=== PATIENT | female | born 1985 | race Caucasian/White ===

== ENCOUNTER 2024-06-04 16:21 | Outpatient (CLI) | payer BC, SELFPAY ==
[2024-06-04] VITALS (7 sets, daily range): BP systolic 120–138; BP diastolic 85–99; PULSE 90–116; BMI 41.8
[2024-06-04 16:56] LABS: Basophils Percent Auto 0.4 % (0.2-1.2); Eosinophils Absolute Auto 0.2 K/mm3 (0-0.3); Eosinophils Percent Auto 1.6 % (0-4.4); Hematocrit 35.4 % (37.0-47.0); Hemoglobin 11.6 g/dL (12.0-15.0); Immature Granulocyte Absolute 0.05 K/mm3 (0.00-0.031); Immature Granulocyte Percent A 0.5 % (0-0.5); Lymphocytes Absolute Auto 2.14 K/mm3 (0.9-3.2); Mean Corpuscular HGB Conc 32.8 g/dl (32-36); Mean Corpuscular Hemoglobin 27.4 pg (26-34); Mean Corpuscular Volume 83.7 fl (80-100); Mean Platelet Volume 10.9 fl (7.4-10.4); Monocytes Absolute Auto 0.5 K/mm3 (0.1-0.6); Monocytes Percent Auto 5.2 % (2.6-8.5); Neutrophils Absolute Auto 7.3 K/mm3 (1.3-6.7); Neutrophils Percent Auto 71.3 % (45.5-73.1); Platelet Count Result 254 k/mm3 (150-375); Red Blood Count 4.23 M/mm3 (4.2-5.4); Red Cell Distribution Width 14.2 % (11.5-14.5); White Blood Count 10.2 K/mm3 (4.5-10.0)
[2024-06-04 16:59] LABS: Add Urine Microscopic? YES; Appearance Urine Clear (Clear); Bacteria Urine Rare /hpf; Bilirubin Urine Negative (Negative); Blood Urine 1+ (Negative); Color Urine Yellow (Yellow); Glucose Urine UA Negative (Negative); Ketones Urine 2+ mg/dL (Negative); Leukocyte Esterase Ur 2+ LEU/UL (Negative); Nitrate Urine Negative (Negative); Non Pathogenic Casts 0-2; Protein Urine Negative (Negative); RBC Urine 0-2 /hpf (0-2); Squamous Epithelial Cell Urine Few /hpf (Few); Urobilinogen Urine 0.2 mg/dL (<2.0); pH Urine 5.5 (5.0-9.0)
[2024-06-04 17:04] LABS: Creatinine Urine 50.8 mg/dL; Total Protein Urine Random 10 mg/dL
[2024-06-04 17:08] LABS: Alanine Aminotransferase 11 U/L (6-35); Albumin Level 3.7 g/dL (3.5-5.1); Alkaline Phosphatase 145 U/L (38-126); Anion Gap 12 mmol/L (4-12); Aspartate Amino Transferase 17 U/L (14-36); Bilirubin,Total 0.5 mg/dL (0.2-1.3); Blood Urea Nitrogen 7 mg/dL (7-17); Calcium 9.1 mg/dL (8.4-10.2); Carbon Dioxide 17 mmol/L (22-30); Chloride 103 mmol/L (98-107); Estimated Glomerular Filt Rate > 60; Glucose 82 mg/dL (65-110); Potassium 3.6 mmol/L (3.4-5.0); Sodium 132 mmol/L (137-145); Uric Acid 4.4 mg/dL (2.5-7.5)
--- NOTE | 2024-06-04 17:47 | PC.NURSE ---
see obix notes
== END 2024-06-04 19:15 | disposition home or self-care (01) ==
LOC: ANHOBOP 16:35 → ANHLDR 16:35
PROVIDERS: Advanced Practice Midwife; PCP Registered Nurse; Visit Provider Obstetrics & Gynecology Gynecology
DX: O13.9 Gestational [pregnancy-induced] hypertension without significant proteinuria, unspecified trimester (principal); Z3A.00 Weeks of gestation of pregnancy not specified
CPT/HCPCS: 36415; 80053; 81001; 82570; 84156; 84550; 85025; 87086; 99199

== ENCOUNTER 2024-06-13 05:05 | Outpatient (CLI) | payer BC, SELFPAY ==
[2024-06-13] VITALS (19 sets, daily range): BP systolic 116–119; BP diastolic 73–79; PULSE 71–95; O2SAT 97–99; BMI 42.2
--- NOTE | 2024-06-13 05:36 | OBADM ---
This patient, Soheila Orourke, admitted to the OB room OB Post 117 for observation. Patient/family oriented to hospital policies and general routines including ID bracelet, bed and alarms, visiting hours, pain management, procedures, bathroom and other care routines, personal items, smoking policy, room service/diet, and visiting hours. Patient/Family are encouraged to report perceived risks to care and to ask questions if they do not understand what they are told or what they should do.
--- NOTE | 2024-06-13 05:40 | PC.NURSE ---
pt presents to unit with complaints of headache since last night rating 7/10. Pt reports elevated blood pressures at home. Pt denies LOF, Vaginal bleeding, contractions, or visual disturbances. Pt states that she has experienced flutters in RUQ throughout this but states that they have not happened tonight. Pt states that she took 2 childrens tylenol at home approx @ 0345.
[2024-06-13 05:42] LABS: Basophils Percent Auto 0.5 % (0.2-1.2); Eosinophils Absolute Auto 0.2 K/mm3 (0-0.3); Eosinophils Percent Auto 2.6 % (0-4.4); Hematocrit 34.8 % (37.0-47.0); Hemoglobin 11.3 g/dL (12.0-15.0); Immature Granulocyte Absolute 0.04 K/mm3 (0.00-0.031); Immature Granulocyte Percent A 0.5 % (0-0.5); Lymphocytes Absolute Auto 2.07 K/mm3 (0.9-3.2); Lymphocytes Percent Auto 25.6 % (18.3-44.2); Mean Corpuscular HGB Conc 32.5 g/dl (32-36); Mean Corpuscular Hemoglobin 27.6 pg (26-34); Mean Corpuscular Volume 84.9 fl (80-100); Mean Platelet Volume 10.8 fl (7.4-10.4); Monocytes Absolute Auto 0.6 K/mm3 (0.1-0.6); Monocytes Percent Auto 7.4 % (2.6-8.5); Neutrophils Absolute Auto 5.1 K/mm3 (1.3-6.7); Neutrophils Percent Auto 63.4 % (45.5-73.1); Platelet Count Result 233 k/mm3 (150-375); Red Cell Distribution Width 14.3 % (11.5-14.5); White Blood Count 8.1 K/mm3 (4.5-10.0)
[2024-06-13 05:47] LABS: Total Protein Urine Random 15 mg/dL
[2024-06-13 05:49] LABS: Creatinine Urine 17.4 mg/dL; Ur Ttl Prot Creatinine Ratio 0.86 mg/mg (0-0.20)
[2024-06-13 05:50] LABS: Alanine Aminotransferase 11 U/L (6-35); Albumin Level 3.4 g/dL (3.5-5.1); Alkaline Phosphatase 161 U/L (38-126); Anion Gap 10 mmol/L (4-12); Aspartate Amino Transferase 16 U/L (14-36); Bilirubin,Total 0.3 mg/dL (0.2-1.3); Blood Urea Nitrogen 7 mg/dL (7-17); Calcium 8.7 mg/dL (8.4-10.2); Carbon Dioxide 18 mmol/L (22-30); Chloride 105 mmol/L (98-107); Estimated CRCL calculation 175 ml/min; Estimated Glomerular Filt Rate > 60; Glucose 89 mg/dL (65-110); Potassium 3.5 mmol/L (3.4-5.0); Sodium 133 mmol/L (137-145); Uric Acid 4.5 mg/dL (2.5-7.5)
[2024-06-13 05:53] LABS: Add Urine Microscopic? YES
[2024-06-13 05:54] LABS: Appearance Urine Clear (Clear); Color Urine Yellow (Yellow)
[2024-06-13 05:56] LABS: Bilirubin Urine Negative (Negative); Blood Urine Trace (Negative); Glucose Urine UA Negative (Negative); Ketones Urine Negative (Negative); Leukocyte Esterase Ur 1+ LEU/UL (Negative); Nitrate Urine Negative (Negative); Protein Urine Negative (Negative); Specific Grav Ur <= 1.005 (1.001-1.035); Urobilinogen Urine 0.2 mg/dL (<2.0)
[2024-06-13 05:57] LABS: Bacteria Urine None Seen /hpf; Need Manual Microscopic Reviewed; Non Pathogenic Casts 0-2; RBC Urine 0-2 /hpf (0-2); Squamous Epithelial Cell Urine Occasional /hpf (Few)
--- NOTE | 2024-06-13 06:34 | PC.NURSE ---
Antoinette Colon notified of adm c/o of headache, BP's at home and BP's here, and lab results. Orders received.
[2024-06-13] MEDS: ACETAMINOPHEN/BUTALBITAL/CAFFEINE 325-50-40 MG TABLET (FIORICET) 1 TAB PO (06:46)
--- NOTE | 2024-06-13 07:42 | PC.NURSE ---
Patient states that her headache is now at a reasonable level and that she is feeling much better. Patient is comfortable going home.
--- NOTE | 2024-06-13 07:45 | PC.NURSE ---
Antoinette Colon notified that patients headache is better and that patient is comfortable going home. Will consult with Dr Baez and call me back with further orders.
--- NOTE | 2024-06-13 08:04 | PC.NURSE ---
Addendum entered by Prema Rodriguez RN 06/13/24 08:04: [id number] Original Note: Antoinette Colon called back, OK to go home per Dr Baez. Patient to follow-up on friday in the office.
== END 2024-06-13 07:55 | disposition home or self-care (01) ==
LOC: ANHOBOP 05:14 → ANHOBPP 05:18
PROVIDERS: Advanced Practice Midwife; PCP Registered Nurse; Visit Provider Obstetrics & Gynecology Gynecology
DX: O13.9 Gestational [pregnancy-induced] hypertension without significant proteinuria, unspecified trimester (principal); Z3A.00 Weeks of gestation of pregnancy not specified
CPT/HCPCS: 36415; 59025; 80053; 81001; 82570; 84156; 84550; 85025; 87086; 99199; A9270

== ENCOUNTER 2024-06-15 16:20 | Inpatient (IN) | payer BC, SELFPAY ==
[2024-06-15] VITALS (64 sets, daily range): BP systolic 72–158; BP diastolic 38–93; PULSE 50–131; TEMP 36.8; O2SAT 95–100; BMI 42.2
--- NOTE | 2024-06-15 16:20 | LDADM ---
This patient, Soheila Orourke, was admitted to Labor/Delivery/Recovery 104 on 06/15/24 at 16:20. Plans for labor, pain management and were discussed with patient. Patient/family oriented to hospital policies and general routines including ID bracelet, bed and alarms, visiting hours, pain management, procedures, bathroom and other care routines, personal items, smoking policy, room service/diet and guest tray routines, security routines, and visiting hours. Patient/Family are encouraged to report perceived risks to care and to ask questions if they do not understand what they are told or what they should do. See OBIX for further documentation.
[2024-06-15 17:50] LABS: Basophils Absolute Auto 0.1 K/mm3 (0.0-0.1); Basophils Percent Auto 0.5 % (0.2-1.2); Eosinophils Absolute Auto 0.2 K/mm3 (0-0.3); Eosinophils Percent Auto 1.8 % (0-4.4); Immature Granulocyte Absolute 0.05 K/mm3 (0.00-0.031); Immature Granulocyte Percent A 0.5 % (0-0.5); Lymphocytes Absolute Auto 1.97 K/mm3 (0.9-3.2); Lymphocytes Percent Auto 19.6 % (18.3-44.2); Mean Corpuscular HGB Conc 33.3 g/dl (32-36); Mean Corpuscular Hemoglobin 27.8 pg (26-34); Mean Corpuscular Volume 83.5 fl (80-100); Mean Platelet Volume 11.4 fl (7.4-10.4); Monocytes Absolute Auto 0.6 K/mm3 (0.1-0.6); Monocytes Percent Auto 5.8 % (2.6-8.5); Neutrophils Absolute Auto 7.2 K/mm3 (1.3-6.7); Neutrophils Percent Auto 71.8 % (45.5-73.1); Platelet Count Result 251 k/mm3 (150-375); Red Blood Count 4.31 M/mm3 (4.2-5.4); Red Cell Distribution Width 14.2 % (11.5-14.5); White Blood Count 10.1 K/mm3 (4.5-10.0)
[2024-06-15 18:04] LABS: Alanine Aminotransferase 10 U/L (6-35); Albumin Level 3.8 g/dL (3.5-5.1); Alkaline Phosphatase 176 U/L (38-126); Anion Gap 14 mmol/L (4-12); Aspartate Amino Transferase 17 U/L (14-36); Bilirubin,Total 0.5 mg/dL (0.2-1.3); Blood Urea Nitrogen 9 mg/dL (7-17); Calcium 9.1 mg/dL (8.4-10.2); Carbon Dioxide 17 mmol/L (22-30); Chloride 101 mmol/L (98-107); Estimated Glomerular Filt Rate > 60; Glucose 77 mg/dL (65-110); Potassium 3.8 mmol/L (3.4-5.0); Sodium 132 mmol/L (137-145)
[2024-06-15 18:31] LABS: Rapid Plasma Reagin Non-Reactive (NonReactive)
[2024-06-15 18:45] LABS: HIV 1/2 Ab P24 Ag Result Negative (Negative)
[2024-06-15] MEDS: LACTATED RINGERS 500 ML 999 ML IV CONT (20:43)
--- NOTE | 2024-06-15 21:39 | WPDANESEPP ---
Anes - Eval Pre Procedure Procedure: labor epidural Date/Time: 06/15/24 21:39 Surgeon: philip Preop Diagnosis: pain during labor Pre Op Diagnosis: Induction of Labor Patient Data Age: 39 Gender: F Height: 1.73 m Weight: 126 kg Last Vital Signs Temp 36.8 C 06/15/24 18:00 Pulse 85 06/15/24 21:30 BP 121/85 06/15/24 21:30 Allergies Allergy/AdvReac Type Severity Reaction Status Date / Time Sulfa (Sulfonamide Allergy Rash Verified 06/13/24 05:46 Antibiotics) Home Medications Medication Instructions Recorded Confirmed Type levothyroxine 175 mcg tablet 175 mcg PO DAILY 05/29/24 06/13/24 History prenat.vits,bo,[id number]-[id number] 1 tablet DAILY 05/29/24 06/13/24 History Laboratory Tests 06/15/24 17:13 WBC 10.1 H K/mm3 (4.5-10.0) RBC 4.31 M/mm3 (4.2-5.4) Hgb 12.0 g/dL (12.0-15.0) Hct 36.0 L % (37.0-47.0) MCV 83.5 fl (80-100) MCH 27.8 pg (26-34) MCHC 33.3 g/dl (32-36) RDW 14.2 % (11.5-14.5) Plt Count 251 k/mm3 (150-375) MPV 11.4 H fl (7.4-10.4) Immature Gran % (Auto) 0.5 % (0-0.5) Neut % (Auto) 71.8 % (45.5-73.1) Lymph % (Auto) 19.6 % (18.3-44.2) [place] % (Auto) 5.8 % (2.6-8.5) Eos % (Auto) 1.8 % (0-4.4) Baso % (Auto) 0.5 % (0.2-1.2) Lymph # (Auto) 1.97 K/mm3 (0.9-3.2) [place] # (Auto) 0.6 K/mm3 (0.1-0.6) Eos # (Auto) 0.2 K/mm3 (0-0.3) Baso # (Auto) 0.1 K/mm3 (0.0-0.1) Abs Immat Gran (auto) 0.05 H K/mm3 (0.00-0.031) Absolute Neuts (auto) 7.2 H K/mm3 (1.3-6.7) Absolute Nucleated RBC 0.000 K/mm3 (0.0-0.012) Nucleated RBC % 0.0 % (0.0-0.2) Sodium 132 L mmol/L (137-145) Potassium 3.8 mmol/L (3.4-5.0) Chloride 101 mmol/L (98-107) Carbon Dioxide 17 L mmol/L (22-30) Anion Gap 14 H mmol/L (4-12) BUN 9 mg/dL (7-17) Creatinine 0.50 L mg/dL (0.7-1.0) Estim Creat Clear Calc Not Reportable Estimated GFR > 60 (59 - ) Glucose 77 mg/dL (65-110) Calcium 9.1 mg/dL (8.4-10.2) Total Bilirubin 0.5 mg/dL (0.2-1.3) AST 17 U/L (14-36) ALT 10 U/L (6-35) Alkaline Phosphatase 176 H U/L (38-126) Total Protein 7.0 g/dL (6.3-8.2) Albumin 3.8 g/dL (3.5-5.1) RPR Non-reactive (NonReactive) HIV 1&2 Ab/P24 Ag 4thGn Negative (Negative) Blood Type A Positive Antibody Screen Negative Patient hx anesthesia problems: none Family hx anesthesia problems: none Results Review: All pre-operative results and documents have been reviewed as part of the pre-operative evaluation. [facility] Past Medical History Medical History (Updated 06/15/24 @ 21:40 by Aga Miguel CRNA) Hypothyroid IUP (intrauterine ), incidental Morbid obesity Family History Family History (Updated 05/29/24 @ 14:35 by Sharlene Dunn RN) Other Patient denies significant medical history Social History Social History Years smoked: 10 Smoking status: Former smoker Tobacco type: cigarettes Substance use: never Do You Feel Safe in your Home?: Yes Lack of Transportation: No Lack of Food: Never True Current Housing: I Have Housing Concerned About Future Housing: No Difficulty Paying Gas/Electric Bills: No Difficulty Paying for Meds: No Currently Unemployed: No Education: Trade/Vocational Certificate Difficulty w/ Childcare or Family Care: No Spiritual care concerns: No Exam Day of Procedure 06/15/24 21:39
[2024-06-15] MEDS: LACTATED RINGERS 1,000 ML 500 ML IV CONT (22:51)
[2024-06-15] MEDS: ONDANSETRON INJ 4 MG/2 ML VIAL IV PUSH (23:47)
[2024-06-16] VITALS (215 sets, daily range): BP systolic 80–146; BP diastolic 39–97; PULSE 55–141; RESP 12–18; TEMP 36.1–37.8; O2SAT 83–100
[2024-06-16] MEDS: LACTATED RINGERS 1,000 ML 500 ML IV CONT ×2 (02:10→06:25)
[2024-06-16] MEDS: OXYTOCIN 30 UNITS/NS 500 ML 30 UNITS/500 ML BAG IV CONT (03:10)
[2024-06-16] MEDS: diphenhydrAMINE HCl INJ 50 MG/ML VIAL 25 MG IV PUSH (03:49)
--- NOTE | 2024-06-16 07:17 | WPDOBADMIT ---
Obstetrics - Admit Note Admission Note: record reviewed. No pertinent additions to the history and/or any subsequent changes in the physical findings that are not consistent with the expected course of the were found. Additions to the history and/or subsequent changes in the physical findings follow. Preeclampsia diagnosed 06/15/24.
--- NOTE | 2024-06-16 07:18 | PM.OBPNLAB ---
Pain Control Date/time seen: 06/16/24 07:10 Pain control: tolerating well and epidural Pelvic Exam Dilation (cm): 3 Effacement (%): 50 station: -3 Amniotic membrane status: Intact Comments: head well applied to cervix. Contractions Monitor mode: External Contraction pattern: Irregular Contraction phase: Contraction Contraction intensity: Moderate Status status: Category ll Comments: Reassured by moderate variability and accelerations. Assessment and Plan Pitocin rate (mU/min): 2 Assessment: induction ongoing Comments: CNM to bedside. Discussed plan of care and option for amniotomy and IUPC placement. Discussed risks, benefits, and expectations of breaking water. Patient is agreeable. Amniotomy performed and there was a small return of clear amniotic fluid. IUPC inserted easily and clear fluid returned in catheter. Patient tolerated procedure well. Recommend frequent position changes to facilitate optimal positioning. Dr. Opal Michaud updated.
[2024-06-16] MEDS: LORATADINE 10 MG TABLET PO (07:57)
[2024-06-16] MEDS: LEVOTHYROXINE SODIUM 100 MCG, LEVOTHYROXINE SODIUM 75 MCG 175 MCG PO (07:57)
[2024-06-16] MEDS: SODIUM CHLORIDE 0.9% IV 300 ML 600 ML I-UTERINE (09:49)
[2024-06-16] MEDS: DEXTROSE 5%/LACTATED RINGERS 1,000 ML 125 ML IV CONT (10:24)
--- NOTE | 2024-06-16 14:34 | PM.OBPRVD ---
OB - Vaginal Delivery Note Procedure Delivery date: 06/16/24 Events: Preeclampsia w/o severe features Induction method: Per Pitocin Protocol Delivery augmentation: Rupture of Membranes Delivery monitor: External FHT and Internal Uterine Route of delivery: Episiotomy description: None Laceration Description: None Specimen: Yes Quantitative Blood Loss (ml): 225 Anesthesia type: Epidural Disposition: Floor Complications: No immediate complications Narrative: Soheila arrived From home for induction of labor secondary to preeclampsia without severe features. Her induction was started with Pitocin. Amniotomy was also performed. She made change to complete dilation and pushed well with contractions. She brought the head to a complete crown after which she delivered over an intact perineum. Excellent restitution was observed and there was smooth delivery of the anterior and posterior shoulders followed by the remainder of the . The was placed on the maternal abdomen and dried and stimulated by the nursery staff. Nursery staff asked for the cord to be clamped and cut after which baby was taken to the warmer. There was spontaneous delivery of the placenta. The vulva and vaginal mucosa was examined and found to be intact. There was excellent uterine tone and hemostasis. All delivery counts correct. [place] Baby Date of : 06/16/24 Time of : 14:18 Gestational Age by Date: 37 gender: Female Weight (pounds): 7 Weight (ounces): 2 presentation: vertex position: Right Occiput Anterior Placenta delivery description: Spontaneous Cord Vessel Description: 3 Vessels and Clamped/Cut score one minute: 8 score five minutes: 9
--- NOTE | 2024-06-16 14:39 | PM.OBDSVD ---
DS: Admitting Diagnosis Discharge Date 06/18/24 Admitting Diagnosis 39 y.o at 38 weeks Preeclampsia AMA Hypothyroidism DS: Discharge Diagnosis Discharge Diagnosis (1) (normal spontaneous vaginal delivery): Code(s): O80 - Encounter for full-term uncomplicated delivery Status: Acute OB - DS: Summary Hospital Course Hospital Course: Uncomplicated OB Procedures : Ultrasound OB Procedures Intrapartum: Spontaneous Vag Delivery OB Procedures: : None Peripartum Data Infant Delivery Method: Natural Vaginal Laceration Description: None Episiotomy description: None complications: none Status at Discharge Functional status at discharge: independent ambulation Overall status at discharge: patient is progressing back to baseline Time Spent with Patient Time attestation: Total time spent providing and/or coordinating discharge services: Exam Narrative: Alert and oriented. Mood is pleasant and cooperative. Perineum with minimal edema. Fundus firm and below umbilicus. Const: General: cooperative, healthy appearing, no acute distress and alert Orientation/consciousness: patient oriented x3 Limitations: no limitations Resp: Effort & Inspection: normal respiratory effort and able to speak in complete sentences Skin: General skin exam: normal color and no rashes or lesions noted Neuro: General: patient oriented x3 and moves all extremities Cognition (Neuro): normal cognition Extrem: General: normal to inspection and no calf tenderness Psych: Appearance: grossly normal Mental Status: mental status grossly normal Affect: normal affect Thought process: Normal thought process present DS: Data Data Completed and Pending Labs on day of discharge: Labs from last 24 hours 06/15/24 17:13 WBC 10.1 H RBC 4.31 Hgb 12.0 Hct 36.0 L MCV 83.5 MCH 27.8 MCHC 33.3 RDW 14.2 Plt Count 251 MPV 11.4 H Immature Gran % (Auto) 0.5 Neut % (Auto) 71.8 Lymph % (Auto) 19.6 [place] % (Auto) 5.8 Eos % (Auto) 1.8 Baso % (Auto) 0.5 Lymph # (Auto) 1.97 [place] # (Auto) 0.6 Eos # (Auto) 0.2 Baso # (Auto) 0.1 Abs Immat Gran (auto) 0.05 H Absolute Neuts (auto) 7.2 H Absolute Nucleated RBC 0.000 Nucleated RBC % 0.0 Sodium 132 L Potassium 3.8 Chloride 101 Carbon Dioxide 17 L Anion Gap 14 H BUN 9 Creatinine 0.50 L Estim Creat Clear Calc Not Reportable Estimated GFR > 60 Glucose 77 Calcium 9.1 Total Bilirubin 0.5 AST 17 ALT 10 Alkaline Phosphatase 176 H Total Protein 7.0 Albumin 3.8 RPR Non-reactive HIV 1&2 Ab/P24 Ag 4thGn Negative Blood Type A Positive Antibody Screen Negative Discharge Plan Discharge Attending physician on discharge: Madison Fatima Discharging Clinician: Angela Colon Anticipated Discharge Date/Time: 06/18/24 09:00 Patient Disposition: Home, Self-Care Activity: may shower and pelvic rest Diet: as tolerated Discharge Instructions: Continue taking your vitamin and any other supplements as previously directed (Examples: Iron, Vitamin D). You may take Tylenol 1000mg over the counter every 6 hours as needed for pain. Do not exceed 4000mg of Tylenol daily. You may continue using tucks pads and dermoplast spray if needed for a few more days. Depression Notify provider for signs or symptoms. These may include- Feelings: Feeling anxious, angry, hopeless, guilt, or loss of interest/pleasure in activities you normally enjoy. Mood swings or panic attacks. General: Extreme fatigue, loss of your appetite, feeling restless. Crying excessively, irritability, insomnia Psychological: Lack of concentration, depression or fear, unwanted thoughts Weight: Significant gain or loss Safety: Thoughts of harming yourself or your baby. Patient Instructions: Antibiotic Form Stand Alone Forms: General Discharge Information F
[2024-06-16] MEDS: OXYTOCIN 30 UNITS/NS 500 ML 30 UNITS/500 ML BAG 125 UNITS IV CONT (14:48)
[2024-06-16] MEDS: ACETAMINOPHEN 325 MG TABLET 650 MG PO (17:22)
--- NOTE | 2024-06-16 17:53 | OBPPTRN ---
Patient transferred to post room #285 via (wheelchair). Support person present. Oriented to unit, room, information board, rooming in, admission packet and security measures. Patient verbalizes understanding.
[2024-06-17 03:46] VITALS: BP 120/73
[2024-06-17] MEDS: IBUPROFEN 600 MG TABLET PO ×3 (04:26→22:00)
[2024-06-17 04:33] LABS: Hematocrit 31.6 % (37.0-47.0); Hemoglobin 10.3 g/dL (12.0-15.0)
[2024-06-17 07:20] VITALS: BP 114/70; PULSE 69; RESP 16; TEMP 36.4; O2SAT 100
[2024-06-17] MEDS: WITCH HAZEL 40 PADS 1 PAD TOPICAL (08:06)
[2024-06-17] MEDS: BENZOCAINE 20% AER SPR (*SP) 56 GM CAN 1 SPRAY TOPICAL (08:06)
[2024-06-17] MEDS: DOCUSATE SODIUM 100 MG CAPSULE PO (08:07)
[2024-06-17] MEDS: LEVOTHYROXINE SODIUM 75 MCG TABLET PO (08:07)
[2024-06-17] MEDS: LEVOTHYROXINE SODIUM 100 MCG TABLET PO (08:07)
[2024-06-17] MEDS: MULTIVIT/MIN/PREN/FOL AC/IRON TABLET 1 TAB BY MOUTH (08:07)
--- NOTE | 2024-06-17 09:15 | PC.NURSE ---
Mother plans to exclusively pump and feed infant. Mother denies pain when pumping and is currently using size 24 flange, she is using the hospital provided pump at this time. Mother agrees to call when she pumps again to assure that her flange size is correct and check placement. Mother states that she pumped with her first child and was unsuccessful and did not breastfeed/pump her other two children. Instructions given on cleaning, care, usage, pumping schedule for milk production, collection, and storage of human milk. Discussed how often pumping should be initiated. Parents are encouraged to record the pumping schedule on the feeding sheet.?Mother voiced understanding of the education shared along with mom/baby guide and the pump measurement, flange fit handout for additional resource information. Reported to the Primary RN.
--- NOTE | 2024-06-17 09:26 | WPDANLDPN2 ---
Anes-Prog Note L&D Date/Time: 06/17/24 09:26 Comfortable throughout: labor and delivery Neuraxial method: epidural Epidural/Spinal procedure site: clean & non-tender Neuro status: Neuro function grossly intact. Cardiovascular status: normal Respiratory status: normal Airway patency: baseline Mental status: baseline Post-Op hydration status: normal Vital Signs: Last Vital Signs Temp 97.5 F L 06/17/24 07:20 Pulse 69 06/17/24 07:20 Resp 16 06/17/24 07:20 BP 114/70 06/17/24 07:20 Pulse Ox 100 06/17/24 07:20 O2 Del Method Room Air 06/16/24 16:50 Pain score (VAS): 0/10 I/O: Intake & Output 06/16/24 06/17/24 06/17/24 23:59 07:59 15:59 Intake Total 0 1100 Output Total 100 1750 Balance -100 -650 Post-procedural complaints: none Patient feedback: Patient satisfied with anesthetic care.
--- NOTE | 2024-06-17 10:48 | PM.OBPNVD ---
OB - PN: Subj Subjective Date/time seen: 06/17/24 10:30 Interval history: PPD 1. Doing well. Urinating without difficulty. Denies passing any large clots. Denies dizziness with ambulating. Tolerating po food and fluids. Bonding with infant. Patient comments: pain well controlled [place] baby status: doing well and bottle feeding well feeding status: exclusively bottle feeding OB - PN: Obj Data Labs 06/17/24 03:59 06/15/24 17:13 Labs: Laboratory Results - last 24 hr 06/17/24 03:59 Hgb 10.3 L Hct 31.6 L OB - PN A/P Assessment and Plan (1) (normal spontaneous vaginal delivery): Code(s): O80 - Encounter for full-term uncomplicated delivery Status: Acute Plan day: 1 Plan: routine care Time Spent With Patient Time: Total time spent is greater than 50% in coordination of care (as documented) at patient's floor/unit and/or counseling patient: Review of Systems Review of Systems: All systems reviewed & are unremarkable except as noted in HPI and below Exam Narrative: Alert and oriented. Mood is pleasant and cooperative. Perineum with minimal edema. Fundus firm and below umbilicus. Const: General: cooperative, healthy appearing, no acute distress and alert Orientation/consciousness: patient oriented x3 Limitations: no limitations Resp: Effort & Inspection: normal respiratory effort and able to speak in complete sentences Auscultation: clear to auscultation bilaterally Cardio: Rate: regular rate GI: Inspection: normal to inspection Auscultation: normal bowel sounds : General: Yes bladder normal to palpation External Female Exam: other (lochia WNL) Bimanual exam- vagina & uterus: bladder normal to palpation Other: Fundus firm and below U Skin: General skin exam: normal color and no rashes or lesions noted Neuro: General: patient oriented x3 and moves all extremities Cognition (Neuro): normal cognition Extrem: General: normal to inspection and no calf tenderness Psych: Appearance: grossly normal Mental Status: mental status grossly normal Affect: normal affect Thought process: Normal thought process present
[2024-06-17 12:01] VITALS: BP 112/68; PULSE 69; RESP 16; TEMP 36.3; O2SAT 100
[2024-06-17 18:31] VITALS: BP 132/80; PULSE 74; RESP 12; TEMP 36.3; O2SAT 100
[2024-06-17 23:26] VITALS: BP 105/52
[2024-06-18 04:05] VITALS: BP 133/89
[2024-06-18] MEDS: DOCUSATE SODIUM 100 MG CAPSULE PO (07:42)
[2024-06-18] MEDS: IBUPROFEN 600 MG TABLET PO (07:42)
[2024-06-18] MEDS: LEVOTHYROXINE SODIUM 75 MCG TABLET PO (07:43)
[2024-06-18] MEDS: LEVOTHYROXINE SODIUM 100 MCG TABLET PO (07:43)
[2024-06-18 08:05] VITALS: BP 108/73; PULSE 78; RESP 16; TEMP 36.6; O2SAT 98
--- NOTE | 2024-06-18 08:06 | PM.OBPNVD ---
OB - PN: Subj Subjective Date/time seen: 06/18/24 0730 Interval history: PPD 2. Continues to do very well. Urinating without difficulty. Denies passing any large clots. Denies dizziness with ambulating. Tolerating po food and fluids. Bonding with infant. Patient comments: no complaints and pain well controlled baby status: bottle feeding well feeding status: exclusively bottle feeding OB - PN: Obj Data Labs 06/17/24 03:59 06/15/24 17:13 OB - PN A/P Assessment and Plan (1) (normal spontaneous vaginal delivery): Code(s): O80 - Encounter for full-term uncomplicated delivery Status: Acute Plan day: 2 Plan: discharge home Time Spent With Patient Time: Total time spent is greater than 50% in coordination of care (as documented) at patient's floor/unit and/or counseling patient: Review of Systems Review of Systems: All systems reviewed & are unremarkable except as noted in HPI and below Exam Narrative: Alert and oriented. Mood is pleasant and cooperative. Perineum with minimal edema. Fundus firm and below umbilicus. Const: General: cooperative, healthy appearing, no acute distress and alert Orientation/consciousness: patient oriented x3 Limitations: no limitations Resp: Effort & Inspection: normal respiratory effort and able to speak in complete sentences Skin: General skin exam: normal color and no rashes or lesions noted Neuro: General: patient oriented x3 and moves all extremities Cognition (Neuro): normal cognition Extrem: General: normal to inspection and no calf tenderness Psych: Appearance: grossly normal Mental Status: mental status grossly normal Affect: normal affect Thought process: Normal thought process present
--- NOTE | 2024-06-18 10:00 | PC.NURSE ---
Patient viewed the discharge video Mother & Baby Care, The First Two Weeks . Patient was given the opportunity and encouraged to ask questions. Patient verbalized understanding of information shared and has been given the mother/baby guide for home reference.
[2024-06-19 11:23] VITALS: BP 130/77; PULSE 70; RESP 18; TEMP 36.8; O2SAT 100
== END 2024-06-18 13:22 | disposition home or self-care (01) | DRG 807 ==
LOC: ANHLDR 06-16 14:41 → ANHOB2 06-16 16:46
PROVIDERS: Advanced Practice Midwife; Admitting Provider Obstetrics & Gynecology Gynecology; PCP Registered Nurse; Visit Provider Obstetrics & Gynecology Gynecology
DX: O14.04 Mild to moderate pre-eclampsia, complicating childbirth (principal); Z37.0 Single live birth; Z3A.38 38 weeks gestation of pregnancy; O77.0 Labor and delivery complicated by meconium in amniotic fluid; O99.284 Endocrine, nutritional and metabolic diseases complicating childbirth; E03.9 Hypothyroidism, unspecified
CPT/HCPCS: 36415; 80053; 85014; 85018; 85025; 86592; 86703; 86850; 86900; 86901; 88307; A9270; G0432; J1200; J2405; J2590; J2795; J7030; J7120; J7121

== ENCOUNTER 2025-02-25 12:06 | Outpatient (CLI) | payer BC, SELFPAY ==
--- NOTE | ~2025-02-25 | US_ITS ---
US pelvic complete w TV Ordering provider: Darby Landa, History: . abn uterine bleeding . Comparison: None. Technique: Transabdominal and endovaginal ultrasound of the pelvis (Doppler ultrasound interrogation techniques used as needed for this exam.) FINDINGS: CERVIX: Normal. UTERUS: Measures 9.5 x 5.2x 5.4 cm in length which is within normal limits and is anteverted. No jessy metrial masses. ENDOMETRIUM: Normal in thickness measuring 4.7 mm. No endometrial masses, cysts or fluid. CUL DE SAC: No free fluid. RIGHT OVARY: Normal in size measuring 4x 3.9x 3.1 cm. Normal echotexture. Doppler vascular flow prese nt. Simple cyst is seen measuring 3.3 x 2.8 x 2.7 cm. LEFT OVARY: Normal in size measuring 4.1x 1.2x 1.6 Normal echotexture. Doppler vascular flow present. ADNEXA: Normal. No mass. IMPRESSION: Right ovarian simple cyst. Follow-up advised. Otherwise, normal pelvic ultrasound. Reviewed, dictated and finalized at location A. IMPRESSION: Right ovarian simple cyst. Follow-up advised. Otherwise, normal pelvic ultrasou nd.
== END 2025-02-26 09:43 | disposition home or self-care (01) ==
PROVIDERS: PCP Registered Nurse; Visit Provider Nurse Practitioner
DX: N93.8 Other specified abnormal uterine and vaginal bleeding (principal); N83.201 Unspecified ovarian cyst, right side
CPT/HCPCS: 76830; 76856

== ENCOUNTER 2025-10-07 12:46 | Outpatient (CLI) | payer BC, SELFPAY ==
--- NOTE | ~2025-10-07 | US_ITS ---
EXAMINATION: US transvaginal INDICATION: Menorrhagia Comparison:No prior studies for comparison. TECHNIQUE: Multiple endovaginal sonographic images of the pelvis performed. FINDINGS: The uterus measures 9.6 x 5.2 x 6.3 cm. The endometrial complex measures 1.2 cm. The right ovary measures 4.4 x 2.4 x 3.1 cm and the left ovary measures 3 x 1.7 x 3.6 cm. There are small follicles in each ovary. Normal doppler signal in both ovaries. There is a right ovarian cyst measuring 3.3 cm. There is trace free fluid in the pelvis. There are no abnormal masses seen on either side. IMPRESSION: 1. Mild endometrial thickening. Otherwise, unremarkable pelvic ultrasound. Reviewed, dictated and finalized at location O. [employer]
== END 2025-10-07 12:47 | disposition home or self-care (01) ==
PROVIDERS: PCP Obstetrics & Gynecology Gynecology; Visit Provider Obstetrics & Gynecology Gynecology
DX: N83.201 Unspecified ovarian cyst, right side (principal)
CPT/HCPCS: 76830